=== PATIENT | male | born 1935 | race Caucasian/White ===

== ENCOUNTER 2019-02-24 16:52 | Emergency (ER) | payer OTHER, MEDICAID ==
[~2019-02-24] VITALS: Ht 167.6 cm; Wt 63.5 kg
[2019-02-24 17:04] VITALS: Ht 167.6 cm; Wt 63.5 kg
[2019-02-25 01:39] LABS: CALCIUM 8.2 mg/dL (8.5-10.1); CHLORIDE SERUM 101 mmol/L (98-107); CREATININE SERUM 0.5 mg/dL (0.7-1.3); GLUCOSE SERUM 94 mg/dL (74-106); POTASSIUM SERUM 4.9 mmol/L (3.5-5.1); SODIUM SERUM 136 mmol/L (136-145)
[2019-02-25 01:40] LABS: PLATELET COUNT 180 x10^3mcL (130-400)
[2019-02-25 01:43] LABS: RED CELL DISTRIBUTION WIDTH 15.9 % (11.5-14.5)
[2019-02-25 01:57] LABS: BAND NEUTROPHIL 1 % (0-10); BASOPHIL 0 % (0-2); MONOCYTE 9 % (0-7); SEGMENTED NEUTROPHILS 69 % (37-75)
[2019-02-25 01:58] LABS: PLATELET MORPHOLOGY PLATELETS NORMAL; rbc morphology (normal/abnorm) NORMAL (NORMAL)
[2019-02-25 05:52] VITALS: BP 100/57
== END 2019-02-25 05:52 | disposition short-term general hospital (02) ==
LOC: ED 16:52 → DU 02-25 01:53 → ED 02-25 01:53
PROVIDERS: Emergency Medicine
DX: I82.411 Acute embolism and thrombosis of right femoral vein (principal); R79.89 Other specified abnormal findings of blood chemistry
CPT/HCPCS: J1642; J1644; J7030; Q0092

== ENCOUNTER 2019-04-02 10:43 | Inpatient (IN) | payer OTHER, MEDICAID ==
[~2019-04-02] VITALS: Ht 170.2 cm; Wt 45.9 kg
[2019-04-02 11:32] LABS: BASOPHIL % 0.5 % (0-2); PLATELET COUNT 365 x10^3mcL (130-400)
[2019-04-02 11:40] LABS: CALCIUM 7.3 mg/dL (8.5-10.1); CARBON DIOXIDE 29.7 mmol/L (21-32); CHLORIDE SERUM 106 mmol/L (98-107); CREATININE SERUM 0.4 mg/dL (0.7-1.3); GLUCOSE SERUM 78 mg/dL (74-106); POTASSIUM SERUM 4.3 mmol/L (3.5-5.1); SODIUM SERUM 139 mmol/L (136-145)
[2019-04-02 11:44] LABS: ALKALINE PHOSPHATASE 710 U/L (46-116); ALT/SGPT 9 U/L (16-63); AST/SGOT 13 U/L (15-37); BILIRUBIN TOTAL 0.4 mg/dL (0.20-1.00)
[2019-04-02 11:45] LABS: ALBUMIN 1.9 g/dL (3.4-5.0); TOTAL PROTEIN, SERUM 5.7 g/dL (6.4-8.2)
[2019-04-02 11:50] LABS: RED CELL DISTRIBUTION WIDTH 19.4 % (11.5-14.5)
[2019-04-02 12:20] LABS: microscopic required? YES; urine erythrocyte TRACE (NEGATIVE)
[2019-04-02] MEDS ORDERED: GABAPENTIN400 M1 PO (13:32)
[2019-04-02] MEDS ORDERED: BACLOFEN20 MG PO (13:33)
[2019-04-02 13:57] LABS: rbc morphology (normal/abnorm) NORMAL (NORMAL)
[2019-04-02 15:19] VITALS: BP 99/49
[2019-04-02 15:55] VITALS: BP 102/53
[2019-04-02 19:45] VITALS: BP 92/53
[2019-04-02 22:31] VITALS: BP 92/53
[2019-04-02 23:00] VITALS: BP 103/54
[2019-04-03 03:02] VITALS: BP 104/54
[2019-04-03 06:15] LABS: BASOPHIL % 0.3 % (0-2); PLATELET COUNT 377 x10^3mcL (130-400)
[2019-04-03 06:17] LABS: RED CELL DISTRIBUTION WIDTH 19.4 % (11.5-14.5)
[2019-04-03 06:29] LABS: CALCIUM 7.4 mg/dL (8.5-10.1); CARBON DIOXIDE 30.3 mmol/L (21-32); CHLORIDE SERUM 105 mmol/L (98-107); CREATININE SERUM 0.4 mg/dL (0.7-1.3); GLUCOSE SERUM 110 mg/dL (74-106); MAGNESIUM 1.9 mg/dL (1.8-2.4); POTASSIUM SERUM 4.3 mmol/L (3.5-5.1); SODIUM SERUM 138 mmol/L (136-145)
[2019-04-03 07:10] VITALS: BP 86/50
[2019-04-03 11:13] VITALS: BP 81/46
[2019-04-03 16:32] VITALS: BP 102/57
[2019-04-03 20:47] VITALS: BP 96/54
[2019-04-04 05:19] VITALS: BP 146/56
[2019-04-04 06:42] LABS: CALCIUM 7.5 mg/dL (8.5-10.1); CARBON DIOXIDE 25.8 mmol/L (21-32); CHLORIDE SERUM 108 mmol/L (98-107); CREATININE SERUM 0.4 mg/dL (0.7-1.3); GLUCOSE SERUM 110 mg/dL (74-106); PHOSPHOROUS 2.9 mg/dL (2.5-4.9); SODIUM SERUM 140 mmol/L (136-145)
[2019-04-04 06:49] LABS: PLATELET COUNT 408 x10^3mcL (130-400); RED CELL DISTRIBUTION WIDTH 19.3 % (11.5-14.5)
[2019-04-04 08:44] VITALS: BP 115/60
[2019-04-04 12:22] VITALS: BP 141/85
[2019-04-04 17:10] VITALS: BP 116/62
[2019-04-04 20:25] VITALS: BP 105/59
[2019-04-05 04:29] VITALS: BP 126/74
[2019-04-05 08:15] VITALS: BP 106/56
[2019-04-05 09:55] VITALS: BP 87/54
[2019-04-05 11:05] VITALS: BP 117/64
[2019-04-05 16:36] VITALS: BP 149/81
[2019-04-05 20:26] VITALS: BP 97/51
[2019-04-06 05:45] VITALS: BP 105/66
[2019-04-06 08:35] VITALS: BP 137/80
[2019-04-06 12:35] VITALS: BP 123/72
[2019-04-06 17:00] VITALS: BP 114/64
[2019-04-06 22:12] VITALS: Ht 170.2 cm; Wt 45.9 kg
[2019-04-06 22:21] VITALS: BP 124/65
[2019-04-07 06:14] LABS: BASOPHIL % 0.2 % (0-2); PLATELET COUNT 360 x10^3mcL (130-400)
[2019-04-07 06:26] VITALS: BP 123/71
[2019-04-07 06:32] LABS: RED CELL DISTRIBUTION WIDTH 19.3 % (11.5-14.5)
[2019-04-07 08:27] LABS: CALCIUM 7.5 mg/dL (8.5-10.1); CHLORIDE SERUM 108 mmol/L (98-107); CREATININE SERUM 0.3 mg/dL (0.7-1.3); GLUCOSE SERUM 109 mg/dL (74-106); POTASSIUM SERUM 3.7 mmol/L (3.5-5.1); SODIUM SERUM 142 mmol/L (136-145)
[2019-04-07 09:11] VITALS: BP 118/53
[2019-04-07 13:16] VITALS: BP 97/48
[2019-04-07 20:45] VITALS: BP 129/77
[2019-04-08 06:12] VITALS: BP 100/63
[2019-04-08 08:16] VITALS: BP 105/58
[2019-04-08 11:33] VITALS: BP 109/60
[2019-04-08 11:47] LABS: CALCIUM 7.3 mg/dL (8.5-10.1); CARBON DIOXIDE 29.6 mmol/L (21-32); CHLORIDE SERUM 107 mmol/L (98-107); CREATININE SERUM 0.4 mg/dL (0.7-1.3); GLUCOSE SERUM 113 mg/dL (74-106); POTASSIUM SERUM 3.8 mmol/L (3.5-5.1); SODIUM SERUM 141 mmol/L (136-145)
[2019-04-08 11:59] LABS: BASOPHIL % 0.2 % (0-2); PLATELET COUNT 330 x10^3mcL (130-400)
[2019-04-08 12:01] LABS: RED CELL DISTRIBUTION WIDTH 19.3 % (11.5-14.5)
[2019-04-08 16:39] VITALS: BP 130/72
[2019-04-08 20:52] VITALS: BP 112/62
[2019-04-09 05:48] VITALS: BP 123/62
[2019-04-09 06:28] LABS: CALCIUM 7.5 mg/dL (8.5-10.1); CARBON DIOXIDE 27.8 mmol/L (21-32); CHLORIDE SERUM 106 mmol/L (98-107); CREATININE SERUM 0.4 mg/dL (0.7-1.3); GLUCOSE SERUM 92 mg/dL (74-106); POTASSIUM SERUM 4.4 mmol/L (3.5-5.1); SODIUM SERUM 140 mmol/L (136-145)
[2019-04-09 07:18] LABS: BASOPHIL % 0.8 % (0-2); PLATELET COUNT 282 x10^3mcL (130-400)
[2019-04-09 07:19] LABS: RED CELL DISTRIBUTION WIDTH 19.7 % (11.5-14.5)
[2019-04-09 08:51] VITALS: BP 153/77
[2019-04-09 11:29] VITALS: BP 119/69
[2019-04-09 16:35] VITALS: BP 111/61
[2019-04-09 21:31] VITALS: BP 132/73
[2019-04-10 05:55] VITALS: BP 113/58
[2019-04-10 06:39] LABS: CALCIUM 7.8 mg/dL (8.5-10.1); CARBON DIOXIDE 29.5 mmol/L (21-32); CHLORIDE SERUM 105 mmol/L (98-107); CREATININE SERUM 0.4 mg/dL (0.7-1.3); GLUCOSE SERUM 101 mg/dL (74-106); POTASSIUM SERUM 4.7 mmol/L (3.5-5.1); SODIUM SERUM 139 mmol/L (136-145)
[2019-04-10 08:49] LABS: PLATELET COUNT 330 x10^3mcL (130-400)
[2019-04-10 09:15] VITALS: BP 130/63
[2019-04-10 09:43] LABS: BAND NEUTROPHIL 3 % (0-10); BASOPHIL 1 % (0-2); MONOCYTE 2 % (0-7); SEGMENTED NEUTROPHILS 89 % (37-75)
[2019-04-10 09:45] LABS: PLATELET MORPHOLOGY PLATELETS INCREASED; rbc morphology (normal/abnorm) ABNORMAL (NORMAL)
[2019-04-10 12:17] VITALS: BP 94/49
[2019-04-10 15:37] VITALS: BP 105/51
[2019-04-10 18:05] VITALS: BP 98/53
[2019-04-10 20:45] VITALS: BP 101/55
[2019-04-11 06:15] VITALS: BP 85/45
[2019-04-11 09:31] VITALS: BP 82/49
[2019-04-11 14:37] VITALS: BP 101/53
[2019-04-11 17:49] VITALS: BP 99/54
[2019-04-11 20:00] VITALS: BP 82/50
== END 2019-04-12 10:26 | disposition expired | DRG 177 ==
LOC: ED 10:43 → IC 13:24 → DU 13:24 → IC 14:42 → DU 04-03 16:15 → IC 04-04 06:52 → DU 04-04 07:00
PROVIDERS: Internal Medicine; Student in an Organized Health Care Education/Training Program; ADMIT Internal Medicine
PROC: 30233N1 Transfusion of Nonautologous Red Blood Cells into Peripheral Vein, Percutaneous Approach (ICD-10-PCS; principal; 2019-04-02)
PROC: 0DH68UZ Insertion of Feeding Device into Stomach, Via Natural or Artificial Opening Endoscopic (ICD-10-PCS; 2019-04-05)
DX: J69.0 Pneumonitis due to inhalation of food and vomit (principal); J96.20 Acute and chronic respiratory failure, unspecified whether with hypoxia or hypercapnia; L89.154 Pressure ulcer of sacral region, stage 4; E43 Unspecified severe protein-calorie malnutrition; G12.21 Amyotrophic lateral sclerosis; Z68.1 Body mass index [BMI] 19.9 or less, adult; R64 Cachexia; R13.10 Dysphagia, unspecified; L08.9 Local infection of the skin and subcutaneous tissue, unspecified; L89.109 Pressure ulcer of unspecified part of back, unspecified stage; B96.89 Other specified bacterial agents as the cause of diseases classified elsewhere; B96.4 Proteus (mirabilis) (morganii) as the cause of diseases classified elsewhere; B96.1 Klebsiella pneumoniae [K. pneumoniae] as the cause of diseases classified elsewhere; I95.9 Hypotension, unspecified; R00.1 Bradycardia, unspecified; R41.82 Altered mental status, unspecified; D63.8 Anemia in other chronic diseases classified elsewhere; J44.9 Chronic obstructive pulmonary disease, unspecified; M81.0 Age-related osteoporosis without current pathological fracture; Z66 Do not resuscitate; Z87.01 Personal history of pneumonia (recurrent); Z74.01 Bed confinement status; Z86.718 Personal history of other venous thrombosis and embolism; Z79.01 Long term (current) use of anticoagulants
CPT/HCPCS: 36600; 43235; 83880; 92526-GN; 92610-GN; C9113; G0378; J0132; J0696; J1200; J1610; J1644; J1885; J2250; J2270; J2310; J2543; J3010; J3370; J3490; J7030; J7040; J7042; J7060; J7620; J8597; P9016; Q0092